=== PATIENT | male | born 1980 | race Caucasian/White ===

== ENCOUNTER 2025-04-24 07:44 | Day surgery (SDC) | payer BC ==
[~2025-04-24 07:44] MED LIST: Lactated Ringers 1,000 ML IV SCH; Midazolam 1 MG/ML 2 ML SDV ONE; Morphine 8 MG, EPINEPHrine 0.3 MG, Cefuroxime 750 MG, Ketorolac 30 MG, Sodium Chloride ... PRN; Ondansetron 4 MG/2 ML SDV IVPUSH PRN; Sodium Chloride 0.9% 10 ML Syringe FLUSH PRN; Sodium Chloride 0.9% 10 ML Syringe FLUSH SCH; fentaNYL 100 MCG/2 ML SDV ONE; propofoL 1,000 MG/100 ML 100 ML ONE
[2025-04-24] MEDS ORDERED: Lactated Ringers 1,000 ML IV ONE (07:45)
[2025-04-24] MEDS: oxyCODONE ER 10 MG TAB.ER PO SCH (08:22)
[2025-04-24] MEDS ORDERED: Midazolam 1 MG/ML 2 ML SDV ONE (09:23)
[2025-04-24] MEDS ORDERED: Dexamethasone 4 MG/ML 5 ML MDV ONE (09:38)
[2025-04-24] MEDS ORDERED: Ondansetron 4 MG/2 ML SDV ONE (09:38)
[2025-04-24] MEDS ORDERED: Glycopyrrolate 0.2 MG/ML 2 ML SDV ONE (09:39)
[2025-04-24] MEDS ORDERED: Lactated Ringers 1,000 ML ONE ×2 (09:44→11:33)
[2025-04-24] MEDS ORDERED: ePHEDrine 50 MG/ML SDV ONE (09:50)
[2025-04-24] MEDS: Ketorolac 30 MG/ML SDV ONE (11:08)
[2025-04-24] MEDS ORDERED: Propofol 200 MG/20 ML SDV ONE (11:26)
[2025-04-24] MEDS: fentaNYL 100 MCG/2 ML SDV IVPUSH PRN (12:04)
== END 2025-04-24 16:30 | disposition home or self-care (01) ==
LOC: JD.SDS 07:44
PROVIDERS: ATTEND Orthopaedic Surgery
DX: M16.12 Unilateral primary osteoarthritis, left hip (principal); Q65.89 Other specified congenital deformities of hip
CPT/HCPCS: 0055T; 27130; 73501; 97116; 97161; 97530; A9270; C1713; C1776; J0690; J1100; J1596; J1885; J2250; J2405; J2704; J3010; J3373; J7120; 01214; J3490